=== PATIENT | male | born 1955 | race African-American/Black ===

== ENCOUNTER 2018-11-07 12:39 | Inpatient (IN) | payer OTHER, BC ==
[~2018-11-07] VITALS: Ht 172.7 cm; Wt 68.0 kg
[~2018-11-07 12:39] MED LIST: ALLO300T28 PO; ASPIRIN; ATEN50TA2 PO; ATOR40TA PO; [UNRECOGNIZED DRUG - CODE] PO; [UNRECOGNIZED DRUG - CODE] PO; [UNRECOGNIZED DRUG - REMARK]
--- NOTE | 2018-11-07 12:39 | NUR ---
Patient BIBA [facility]S, transferred to bed 7. RN evaluating patient at bedside.
--- NOTE | 2018-11-07 12:43 | NUR ---
PT BIB [facility] TO ER BED 7
[2018-11-07 12:44] VITALS: BP 96/53
--- NOTE | 2018-11-07 12:53 | NUR ---
Pt. is 63 y/o male bib by ems. Per ems, patient was in dialysis and staff noted that pt. was pale and lethargic with a blood pressure of 60/48. Staff gave him a 2L bolus of normal saline. He has a left AV shunt and a right sommer-cath. PMH: kidney disease RX: Uknown
[2018-11-07] MEDS ORDERED: NACL 0.9% 1,000 ML IV SCH (12:54)
--- NOTE | 2018-11-07 13:30 | NUR ---
DR.KURERA ROONEYED TO USE PORT A CATH----USING ASEPTIC TECHINQUE ACCESSED PORT---LABS DRAWN -----PT TOLERATED WITH MINIMAL DISCOMFORT STATED BY PT
[2018-11-07 14:26] LABS: MEAN CORPUSCULAR HEMOGLOBIN 28 pg (27-31); MEAN CORPUSCULAR HGB CONC 32 g/dL (33-37); PLATELET COUNT (AUTO) 181 K/uL (140-450); RED BLOOD CELL COUNT(AUTO) 1.67 MIL/uL (4.20-6.10); RED CELL DISTRIBUTION WIDTH 19.6 % (11.6-13.7); WHITE BLOOD COUNT (AUTO) 5.1 K/uL (4.8-10.8)
[2018-11-07 14:31] LABS: HEMATOCRIT 14.7 % (36-52); HEMOGLOBIN 4.7 g/dL (12.0-18.0)
[2018-11-07 14:35] LABS: ALBUMIN 2.1 g/dL (3.4-5.0); ANION GAP 10.7 (8-16); CARBON DIOXIDE 29.6 mmol/L (21-32); POTASSIUM 3.3 mmol/L (3.5-5.1); TOTAL BILIRUBIN 0.5 mg/dL (0.0-1.0)
[2018-11-07 14:37] LABS: CREATININE 4.9 mg/dL (0.7-1.3)
[2018-11-07 14:53] LABS: LYMPHOCYTES % (MANUAL) 8 % (20-46)
[2018-11-07 14:54] LABS: BASOPHILS % (MANUAL) 0 % (0-2); EOSINOPHILS % (MANUAL) 0 % (0-4); MONOCYTES % (MANUAL) 5 % (5-12)
--- NOTE | 2018-11-07 15:45 | NUR ---
PT'S H&H NOTED. MD AWARE OF CONDITION. DUE TO CHRONIC NATURE, PATIENT OKAY TO DISCHARGE.
--- NOTE | 2018-11-07 16:05 | NUR ---
PT. SEEN BY . WILL BE ADMITTED TO THE FLOOR.
--- NOTE | 2018-11-07 16:06 | NUR ---
Dr. Muñoz evaluating patient at bedside.
[2018-11-07] MEDS ORDERED: PANT40EC PO (16:16)
[2018-11-07] MEDS ORDERED: CINA30TA4 PO (16:16)
[2018-11-07] MEDS ORDERED: RISP1TAB27 PO (16:16)
[2018-11-07] MEDS ORDERED: SUCR500C PO ×2 (16:16→17:49)
[2018-11-07] MEDS ORDERED: SEVE800T6 PO ×2 (16:16→17:49)
[2018-11-07] MEDS ORDERED: DEXT 5% /NACL 0.9% 1,000 ML IV SCH (16:18)
[2018-11-07] MEDS ORDERED: ZOLPIDEM 5 MG TAB PO PRN (16:20)
[2018-11-07] MEDS ORDERED: MORPHINE SULFATE 2 MG/ML SYR IVP PRN (16:20)
[2018-11-07] MEDS ORDERED: ACETAMINOPHEN 325 MG TAB PO PRN (16:20)
[2018-11-07] MEDS ORDERED: DOCUSATE SODIUM 100 MG GELCAP PO PRN (16:20)
[2018-11-07] MEDS ORDERED: LORazepam 2 MG/ML VIAL IM/IVP PRN (16:20)
[2018-11-07] MEDS ORDERED: ONDANSETRON 4 MG/2 ML VIAL IM/IVP PRN (16:20)
[2018-11-07] MEDS ORDERED: HYDROcodone/APAP 5/325 MG 1 TAB TAB PO PRN (16:20)
--- NOTE | 2018-11-07 16:28 | NUR ---
DUE TO H&H VALUE, . NOTIFIED. WILL ADMIT TO 121 B.
--- NOTE | 2018-11-07 17:01 | NUR ---
Note luis in ED - 11/07/18 at 1701 by SAYDA Patient will be admitted to care of DR. GUO. Admited to TELE. Will go to room. Belongings list completed. Report to .
--- NOTE | 2018-11-07 17:02 | NUR ---
Patient will be admitted to care of DR. GUO . Admited to TELE. Will go to room 119 B. Belongings list completed. Report to JOHN LUNDY.
[2018-11-07 17:10] LABS: PROTHROMBIN TIME 12.9 secs (10.8-13.4)
--- NOTE | 2018-11-07 17:15 | NUR ---
RECEIVED PT FROM ED NURSE, PT IS AWAKE BUT APPEARS LETHARGIC. OMAR AT BEDSIDE. HE IS A&O X 4, ON ROOM AIR. SKIN INTACT. PT HAS A R CHEST PORTACATH FOR IV ACCESS. HD SHUNT NOTED IN THE L AV. 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 PT ALSO HAS HX OF PROSTATE CANCER, WHICH WAS ALSO REMOVED. PT STATES THAT HE IS ABLE TO WALK AND DRIVE, HOWEVER, WAS MADE A FALL RISK DUE TO WEAKNESS R/T ANEMIA. PNA VACCINE WAS GIVEN IN APR 2018, FLU VACCINE GIVEN IN JAN 2018. CALL LIGHT GIVEN WITHIN REACH. WILL CONTINUE TO MONITOR.
[2018-11-07 17:19] LABS: CHOL/HDL RATIO 3.1 (1-4.5); MAGNESIUM 1.7 mg/dL (1.8-2.4); PHOSPHORUS 2.9 mg/dL (2.5-4.9); THYROID STIMULATING HORMONE 1.86 uIU/mL (0.34-3.74)
[2018-11-07 17:30] VITALS: BP 112/63
--- NOTE | 2018-11-07 18:10 | NUR ---
CALLED LAB TO CHECK ON PRBC'S STATUS, MOTOR CHECKER SAYS BLOOD IS STILL BEING TYPED AND CROSS-MATCHED IN [place], AND WILL CALL WHEN READY. PT AND FAMILY NOTIFIED.
--- NOTE | 2018-11-07 18:55 | NUR ---
LATE DINNER TRAY PROVIDED FOR PT. PT IS ON RENAL DIET. AND DAUGHTER ARE AT BEDSIDE.
--- NOTE | 2018-11-07 19:10 | NUR ---
RECEIVED BEDSIDE REPORT FROM AM SHIFT RN HOLLY, FOR PATIENT'S CONTINUITY OF CARE. PATIENT IS EATING LATE DINNER WITH SPOUSE AT BEDSIDE FEEDING HIM. PATIENT IS ALERT, AWAKE, ORIENTED X 4, IS ON ROOM AIR, HAS RIGHT CHEST PORTACATH, LEFT AV SHUNT, SKIN IS INTACT, AND PATIENT IS ANURIC. EXPLAINED TO PATIENT AND FAMILY MEMBER THE NIGHT TIME ROUTINE, PATIENT AND FAMILY MEMBER VERBALIZED UNDERSTANDING.
--- NOTE | 2018-11-07 19:30 | NUR ---
PT ENDORSED TO INSOLE LIP TURNER IN STABLE CONDITION. STILL WAITING TO RECEIVE PRBC'S FROM THE LAB.
--- NOTE | 2018-11-07 19:31 | NUR ---
RECEIVED REPORT FROM PLANT GENERAL MANAGER RN JOE. WILL CONTINUE TO MONITOR.
[2018-11-07 20:00] VITALS: BP 105/65
--- NOTE | 2018-11-07 23:20 | NUR ---
BLOOD TRANSFUSION OBTAINED AND STARTED. VITALS STABLE. VERIFIED WITH CHARGE NURSE DARRYL. WILL REMAIN WITH PT AND RECHECK VITALS WITHIN 15 MIN. WILL CONTINUE TO MONITOR PT. AT BEDSIDE.
--- NOTE | 2018-11-07 23:32 | NUR ---
NASAL CANULA IN PLACE AT 2L.
[2018-11-08] VITALS: BP 109/64
--- NOTE | 2018-11-08 00:32 | NUR ---
NO REACTION TO INFUSING BLOOD. NO SOB. NO PAIN AT THIS TIME. VITALS MONITORED. WILL CONTINUE TO MONITOR.
--- NOTE | 2018-11-08 01:12 | NUR ---
PT IS RESTING IN BED. NO SIGNS OF RESP DISTRESS. NO COMPLAINTS AT THIS TIME. DENIES PAIN. BLOOD STILL INFUSING. VITALS WNL. WILL CONTINUE TO MONITOR.
--- NOTE | 2018-11-08 03:00 | NUR ---
PT IS RESTING IN BED. EASILY AROUSABLE. EVEN CHEST RISE. NO SIGNS OF DISTRESS. BLOOD STILL INFUSING. WILL CONTINUE TO MONITOR.
[2018-11-08 04:00] VITALS: BP 110/70
[2018-11-08 05:33] LABS: EOSINOPHILS # (AUTO) 0.1 K/uL (0-0.4); LYMPHOCYTES # (AUTO) 0.6 K/uL (2.0-11.5); NEUTROPHILS # (AUTO) 3.3 K/uL (1.8-7.7)
[2018-11-08 05:41] LABS: BASOPHILS % (AUTO) 0.6 % (0.0-2.0); EOSINOPHILS % (AUTO) 2.3 % (0.0-4.0); LYMPHOCYTES % (AUTO) 13.9 % (20.5-51.1); MEAN CORPUSCULAR HEMOGLOBIN 29 pg (27-31); MEAN CORPUSCULAR HGB CONC 33 g/dL (33-37); MONOCYTES # (AUTO) 0.4 K/uL (0.8-1.0); MONOCYTES % (AUTO) 9.8 % (1.7-9.3); NEUTROPHILS % (AUTO) 73.4 % (42.2-75.2); PLATELET COUNT (AUTO) 197 K/uL (140-450); RED BLOOD CELL COUNT(AUTO) 2.15 MIL/uL (4.20-6.10); RED CELL DISTRIBUTION WIDTH 18.4 % (11.6-13.7); WHITE BLOOD COUNT (AUTO) 4.5 K/uL (4.8-10.8)
--- NOTE | 2018-11-08 05:48 | NUR ---
LAB CALLED TO REPORT LAB VALUE OF HGB 6.2 HCT 19.1. TRENDING UPWARD. WILL CONTINUE TO MONITOR.
[2018-11-08 05:49] LABS: HEMATOCRIT 19.1 % (36-52); HEMOGLOBIN 6.2 g/dL (12.0-18.0)
[2018-11-08] MEDS: PANTOPRAZOLE 40 MG TABEC PO SCH (06:30)
--- NOTE | 2018-11-08 06:30 | NUR ---
PT REFUSED SCHEDULED MED. EDUCATED ON BENEFITS. VERBALIZED UNDERSTANDING. WILL CONTINUE TO MONITOR.
--- NOTE | 2018-11-08 06:35 | NUR ---
BLOOD COMPLETE. VITALS WNL. TOLERATED WELL. NO SIGNS OF DISTRESS. WILL CONTINUE TO MONITOR.
--- NOTE | 2018-11-08 07:15 | NUR ---
ENDORSED PT TO KWAME HARRIS. PT IN STABLE CONDITION.
--- NOTE | 2018-11-08 07:15 | NUR ---
RECEIVED REPORT FROM MAINFRAME ARCHITECT NURSE. PT HAS NO S/S OF RESPIRATORY DISTRESS UPON ENDORSEMENT. PT IS RESTING IN BED. WILL CONTINUE TO MONITOR
--- NOTE | 2018-11-08 07:16 | NUR ---
RECEIVED BEDSIDE REPORT FROM AVIATION SAFETY OFFICER NURSE. PATIENT IS AWAKE, ALERT AND ORIENTEDX3. NO SIGNS OF DISTRESS ON RA. SKIN IS INTACT. R CHEST PORTACATH, CLEAN, DRY AND INTACT. L ARM SHUNT, SIGNS POSTED, RESTRICTED WRISTBAND IN PLACE. PATIENT IS AMBULATORY W ASSIST, FALL RISK PROTOCOL IN PLACE. TELE MONITOR IN PLACE. PATIENT IS CONTINENT. BED IN LOW POSITION. CALL LIGHT WITHIN REACH. WILL CONTINUE TO MONITOR THE PATIENT.
[2018-11-08] MEDS ORDERED: SEVELAMER CARBONATE 800 MG TAB PO SCH ×2 (07:30→08:00)
[2018-11-08 07:45] VITALS: BP 129/70
[2018-11-08] MEDS ORDERED: NON-FORMULARY ITEM (Sucroferric Oxyhydroxide (Velphoro) 500 MG) PO SCH ×2 (08:00→09:00)
--- NOTE | 2018-11-08 08:43 | NUR ---
PATIENT HAS BEEN SCREENED AND CATEGORIZED MODERATE NUTRITION RISK. PATIENT WILL BE SEEN WITHIN 3-5 DAYS OF ADMISSION. 11/10/18[address]
[2018-11-08] MEDS: risperiDONE 1 MG TAB PO SCH (09:00)
[2018-11-08 09:06] LABS: T4 (THYROXINE) 6.1 ug/dL (4.5-12.0)
[2018-11-08] MEDS: ALLOPURINOL 100 MG TAB PO SCH (09:08)
[2018-11-08] MEDS: SEVELAMER CARBONATE 800 MG TAB PO SCH ×3 (09:08→17:17)
[2018-11-08] MEDS: CINACALCET 30 MG TAB PO SCH (09:08)
--- NOTE | 2018-11-08 09:13 | NUR ---
PATIENT REFUSED MORNING MEDICATION OF RISPERIDONE. STATED THAT HE TAKES THIS MEDICATION AT NIGHT BEFORE BED TO HELP HIM SLEEP.
[2018-11-08 09:47] LABS: BASOPHILS % (AUTO) 0.6 % (0.0-2.0); EOSINOPHILS # (AUTO) 0.1 K/uL (0-0.4); EOSINOPHILS % (AUTO) 1.9 % (0.0-4.0); HEMATOCRIT 21.7 % (36-52); HEMOGLOBIN 7.1 g/dL (12.0-18.0); LYMPHOCYTES # (AUTO) 0.5 K/uL (2.0-11.5); LYMPHOCYTES % (AUTO) 10.2 % (20.5-51.1); MEAN CORPUSCULAR HEMOGLOBIN 29 pg (27-31); MEAN CORPUSCULAR HGB CONC 33 g/dL (33-37); MEAN CORPUSCULAR VOLUME 87.4 fL (80-94); MONOCYTES # (AUTO) 0.4 K/uL (0.8-1.0); MONOCYTES % (AUTO) 8.4 % (1.7-9.3); NEUTROPHILS # (AUTO) 3.6 K/uL (1.8-7.7); NEUTROPHILS % (AUTO) 78.9 % (42.2-75.2); PLATELET COUNT (AUTO) 198 K/uL (140-450); RED BLOOD CELL COUNT(AUTO) 2.48 MIL/uL (4.20-6.10); RED CELL DISTRIBUTION WIDTH 18.8 % (11.6-13.7); WHITE BLOOD COUNT (AUTO) 4.6 K/uL (4.8-10.8)
[2018-11-08 09:59] LABS: ANION GAP 13.3 (8-16); CARBON DIOXIDE 26.8 mmol/L (21-32); POTASSIUM 4.1 mmol/L (3.5-5.1)
[2018-11-08 10:05] LABS: CREATININE 6.9 mg/dL (0.7-1.3)
--- NOTE | 2018-11-08 10:05 | NUR ---
CRITICAL VALUE OF 6.[address] DOMINGUEZ WAS MADE AWARE. NO CHANGE IN ORDERS.
[2018-11-08 10:06] LABS: MAGNESIUM 1.8 mg/dL (1.8-2.4); PHOSPHORUS 4.2 mg/dL (2.5-4.9)
[2018-11-08] MEDS: ACETAMINOPHEN 325 MG TAB PO SCH ×3 (11:36→20:23)
[2018-11-08 12:00] VITALS: BP 120/69
--- NOTE | 2018-11-08 12:00 | NUR ---
BLOOD TRANSFUSION STARTED. PRE TRANSFUSION MEDS WERE GIVEN. NO SIGNS OF REACTION AT THIS TIME. VITALS ARE STABLE. WILL CONTINUE TO MONITOR THE PATIENT.
--- NOTE | 2018-11-08 12:15 | NUR ---
NO REACTION. VITALS ARE STABLE. DIALYSIS NURSE AT BEDSIDE TO START DIALYSIS. DIALYSIS NURSE WILL RUN THE REST OF THE BLOOD WHEN DIALYSIS STARTS
--- NOTE | 2018-11-08 13:30 | NUR ---
BLOOD TRANSFUSION ENDED. NO REACTION NOTED. PATIENT TOLERATED WELL. WILL CONTINUE TO MONITOR
--- NOTE | 2018-11-08 15:30 | NUR ---
DIALYSIS COMPLETED ON PATIENT. CRITICAL SYSTEMS TECHNICIAN TOOK OUT 2.6L. NOTIFIED OF VITAL SIGNS, ALL WNL. BP STABLE UPON END OF DIALYSIS, AND TEMPERATURE WNL.
[2018-11-08 16:00] VITALS: BP 114/66
--- NOTE | 2018-11-08 17:00 | NUR ---
PATIENT IN NO DISTRESS. FAMILY AT BEDSIDE. WILL CONTINUE TO MONITOR
[2018-11-08 17:57] LABS: BASOPHILS % (AUTO) 0.4 % (0.0-2.0); EOSINOPHILS # (AUTO) 0.1 K/uL (0-0.4); EOSINOPHILS % (AUTO) 2.1 % (0.0-4.0); HEMATOCRIT 23.4 % (36-52); HEMOGLOBIN 7.7 g/dL (12.0-18.0); LYMPHOCYTES # (AUTO) 0.5 K/uL (2.0-11.5); LYMPHOCYTES % (AUTO) 10.9 % (20.5-51.1); MEAN CORPUSCULAR HEMOGLOBIN 28 pg (27-31); MEAN CORPUSCULAR HGB CONC 33 g/dL (33-37); MEAN CORPUSCULAR VOLUME 86.2 fL (80-94); MONOCYTES # (AUTO) 0.4 K/uL (0.8-1.0); MONOCYTES % (AUTO) 9.8 % (1.7-9.3); NEUTROPHILS # (AUTO) 3.4 K/uL (1.8-7.7); NEUTROPHILS % (AUTO) 76.8 % (42.2-75.2); PLATELET COUNT (AUTO) 186 K/uL (140-450); RED BLOOD CELL COUNT(AUTO) 2.72 MIL/uL (4.20-6.10); RED CELL DISTRIBUTION WIDTH 19.1 % (11.6-13.7); WHITE BLOOD COUNT (AUTO) 4.5 K/uL (4.8-10.8)
--- NOTE | 2018-11-08 19:10 | NUR ---
ENDORSED PATIENT TO C ENGINEER NURSE. PATIENT IN STABLE CONDITION UPON CHANGE OF SHIFT, NO S/S OF RESPIRATORY DISTRESS.
--- NOTE | 2018-11-08 19:11 | NUR ---
RECEIVED BEDSIDE REPORT FROM AM SHIFT NURSE. PATIENT IS AWAKE, ALERT AND ORIENTEDX3. NO SIGNS OF DISTRESS ON RA. SKIN IS INTACT. WITH R CHEST PORTACATH, CLEAN, DRY AND INTACT. WITH L ARM SHUNT, SIGNS POSTED, RESTRICTED WRISTBAND IN PLACE. PATIENT IS AMBULATORY W ASSIST, FALL RISK PROTOCOL IN PLACE. TELE MONITOR IN PLACE. PATIENT IS CONTINENT. BED IN LOW POSITION. CALL LIGHT WITHIN REACH. WILL CONTINUE TO MONITOR THE PATIENT.
[2018-11-08 20:00] VITALS: BP 123/81
--- NOTE | 2018-11-08 20:15 | NUR ---
INFORMED DR. BRISCOE THAT PT HAD A SHORT RUN V TACH 1950 86 BPM, AND AT 2010 TOOK A READING OF 84BPM ACCELERATED SR. READ TO THE DR. ROGERS READING OF THE PREVIOUS ECG. HE ORDERED FOR ANOTHER ECG AT THIS TIME
--- NOTE | 2018-11-08 20:16 | NUR ---
ASKED BRAULIO BRISCOE IF BLOOD CAN BE TRANSFUSED WITH THE ECG READING. HE SAID OK TO TRANSFUSE THE BLOOD
--- NOTE | 2018-11-08 20:31 | NUR ---
TOOK THE BLOOD FROM THE BLOOD BANK VERIFIED BLOOD W/ BLOOD BANK
--- NOTE | 2018-11-08 20:35 | NUR ---
PRE-TRANSFUSION VS; 96.7; 84; 18 ;121/70; 0/10 PAIN; 99 O2 SAT
--- NOTE | 2018-11-08 20:52 | NUR ---
VERIFIED THE BLOOD WITH 2 RN'S AT PT. BEDSIDE. 2ND TELEVISION REPAIRER SIGNED
[2018-11-08] MEDS ORDERED: ATORVASTATIN 20 MG TAB PO SCH (21:00)
--- NOTE | 2018-11-08 21:07 | NUR ---
15 MINS AFTER START TOOK VS: 97.4; 79;18'111/73 0/10 PAIN 99%
--- NOTE | 2018-11-08 23:22 | NUR ---
REMINDED SEO CONSULTANT/ RT TO GET AN EKG ORDERED BY DR. BRISCOE AT 2020.
[2018-11-09] VITALS: BP 123/73
--- NOTE | 2018-11-09 | NUR ---
ENDED BLOOD TRANSFUSION. WILL TAKE POST TRANSFUSION VITAL SIGNS
[2018-11-09 00:48] LABS: BASOPHILS % (AUTO) 0.8 % (0.0-2.0); EOSINOPHILS # (AUTO) 0.1 K/uL (0-0.4); EOSINOPHILS % (AUTO) 2.7 % (0.0-4.0); HEMATOCRIT 25.6 % (36-52); HEMOGLOBIN 8.6 g/dL (12.0-18.0); LYMPHOCYTES # (AUTO) 0.5 K/uL (2.0-11.5); LYMPHOCYTES % (AUTO) 10.9 % (20.5-51.1); MEAN CORPUSCULAR HEMOGLOBIN 29 pg (27-31); MEAN CORPUSCULAR HGB CONC 34 g/dL (33-37); MEAN CORPUSCULAR VOLUME 86.5 fL (80-94); MONOCYTES # (AUTO) 0.5 K/uL (0.8-1.0); MONOCYTES % (AUTO) 10.4 % (1.7-9.3); NEUTROPHILS # (AUTO) 3.6 K/uL (1.8-7.7); NEUTROPHILS % (AUTO) 75.2 % (42.2-75.2); PLATELET COUNT (AUTO) 178 K/uL (140-450); RED BLOOD CELL COUNT(AUTO) 2.96 MIL/uL (4.20-6.10); WHITE BLOOD COUNT (AUTO) 4.8 K/uL (4.8-10.8)
--- NOTE | 2018-11-09 04:00 | NUR ---
VITAL SIGNS TAKEN. PT IN STABLE CONDITION, WILL CONTINUE TO MONITOR
[2018-11-09 06:00] VITALS: BP 120/68
[2018-11-09 06:10] LABS: BASOPHILS % (AUTO) 0.7 % (0.0-2.0); EOSINOPHILS # (AUTO) 0.1 K/uL (0-0.4); EOSINOPHILS % (AUTO) 2.7 % (0.0-4.0); HEMATOCRIT 26.3 % (36-52); HEMOGLOBIN 8.8 g/dL (12.0-18.0); LYMPHOCYTES # (AUTO) 0.7 K/uL (2.0-11.5); LYMPHOCYTES % (AUTO) 15.5 % (20.5-51.1); MEAN CORPUSCULAR HEMOGLOBIN 29 pg (27-31); MEAN CORPUSCULAR HGB CONC 34 g/dL (33-37); MEAN CORPUSCULAR VOLUME 86.2 fL (80-94); MONOCYTES # (AUTO) 0.4 K/uL (0.8-1.0); MONOCYTES % (AUTO) 9.1 % (1.7-9.3); NEUTROPHILS # (AUTO) 3.3 K/uL (1.8-7.7); PLATELET COUNT (AUTO) 182 K/uL (140-450); RED BLOOD CELL COUNT(AUTO) 3.05 MIL/uL (4.20-6.10); RED CELL DISTRIBUTION WIDTH 18.5 % (11.6-13.7); WHITE BLOOD COUNT (AUTO) 4.6 K/uL (4.8-10.8)
--- NOTE | 2018-11-09 06:18 | NUR ---
LEFT PT ON BED HIGH BACK REST, AWAKE, ORIENTED X 4 IN STABLE CONDITION. WILL HAVE HEMODIALYSIS TODAY.
[2018-11-09] MEDS: PANTOPRAZOLE 40 MG TABEC PO SCH (06:30)
--- NOTE | 2018-11-09 07:10 | NUR ---
RECEIVED REPORT FROM EMBEDDED SYSTEMS ENGINEER NURSE. PATIENT STABLE UPON CHANGE OF SHIFT. NO S/S OF RESPIRATORY DISTRESS. PATIENT IS RESTING QUIETLY IN BED. SCHEDULED TO RECEIVE DIALYSIS TODAY AT 1000. NO FURTHER COMPLAINTS FROM PATIENT. WILL CONTINUE TO MONITOR.
[2018-11-09 07:17] LABS: MAGNESIUM 1.8 mg/dL (1.8-2.4); PHOSPHORUS 4.1 mg/dL (2.5-4.9)
[2018-11-09 07:26] LABS: ANION GAP 15.5 (8-16); CARBON DIOXIDE 25.1 mmol/L (21-32); POTASSIUM 4.6 mmol/L (3.5-5.1)
[2018-11-09 08:00] VITALS: BP 111/73
[2018-11-09] MEDS: SEVELAMER CARBONATE 800 MG TAB PO SCH (08:00)
[2018-11-09] MEDS: CINACALCET 30 MG TAB PO SCH (08:00)
[2018-11-09] MEDS: ALLOPURINOL 100 MG TAB PO SCH (08:13)
[2018-11-09] MEDS: risperiDONE 1 MG TAB PO SCH (08:13)
--- NOTE | 2018-11-09 08:13 | NUR ---
DID NOT ADMINISTER MORNING MEDICATION D/T PATIENT SCHEDULED TO RECEIVE DIALYSIS AT 1000.
--- NOTE | 2018-11-09 08:43 | NUR ---
SPOKE TO DR JUDD AND MADE HIM AWARE REGARDING CRITICAL LAB VALUE OF CREA 8.0. NO CHANGE IN ORDERS PER TELEPHONE CALL. SCHEDULED FOR DIALYSIS AT 1000.
[2018-11-09] MEDS ORDERED: ASPI-1718 PO (08:45)
--- NOTE | 2018-11-09 10:00 | NUR ---
PATIENT ANGRY THAT THE DIALYSIS TIME CHANGED TO 1 OCLOCK D/T AN EMERGENCY WITH THE HD NURSE. PATIENT WANTS TO TALK TO DR DOMINGUEZ AND HE WANTS TO GO HOME.
--- NOTE | 2018-11-09 10:30 | NUR ---
DR DOMINGUEZ SCHEDULED A HD APPOINTMENT FOR PATIENT TOMORROW SO THAT HE CAN GO HOME
--- NOTE | 2018-11-09 11:30 | NUR ---
EDUCATED PATIENT ON DISEASE PROCESS, ABNORMAL S/S, MEDICATION, AND WHEN TO GO TO ER. ASPIRIN ORDER IS OTC AND PATIENT WAS EDUCATED ON IT. PATIENT VERBALIZED UNDERSTANDING. REMOVED PORTACATH, TIP INTACT. REMOVED TELE MONITOR AND ID BANDS. PNA AND FLU VACCINE UP TO DATE. EDUCATED ON DIALYSIS APPOINTMENT TOMORROW. PATIENT WAS DISCHARGED TO HOME ACCOMPANIED BY . PATIENT AMBULATED STEADILY TO THE HOSPITAL ENTRANCE. NO RESP DISTRESS OR SOB UPON DISCHARGE. VITAL SIGNS STABLE.
== END 2018-11-09 11:30 | disposition home or self-care (01) | DRG 280 ==
LOC: MED 12:39 → MTU 16:18
PROVIDERS: ADMIT General Practice; ATTEND General Practice
PROC: 30233N1 Transfusion of Nonautologous Red Blood Cells into Peripheral Vein, Percutaneous Approach (ICD-10-PCS; 2018-11-07)
PROC: 02HV33Z Insertion of Infusion Device into Superior Vena Cava, Percutaneous Approach (ICD-10-PCS; 2018-11-07)
PROC: 5A1D70Z Performance of Urinary Filtration, Intermittent, Less than 6 Hours Per Day (ICD-10-PCS; principal; 2018-11-08)
DX: I13.2 Hypertensive heart and chronic kidney disease with heart failure and with stage 5 chronic kidney disease, or end stage renal disease (principal); N17.0 Acute kidney failure with tubular necrosis; I21.A1 Myocardial infarction type 2; E43 Unspecified severe protein-calorie malnutrition; I50.43 Acute on chronic combined systolic (congestive) and diastolic (congestive) heart failure; N18.6 End stage renal disease; J90 Pleural effusion, not elsewhere classified; D64.9 Anemia, unspecified; D63.8 Anemia in other chronic diseases classified elsewhere; E78.5 Hyperlipidemia, unspecified; G40.909 Epilepsy, unspecified, not intractable, without status epilepticus; I48.91 Unspecified atrial fibrillation; I95.3 Hypotension of hemodialysis; K21.9 Gastro-esophageal reflux disease without esophagitis; F32.9 Major depressive disorder, single episode, unspecified; M10.9 Gout, unspecified; G47.00 Insomnia, unspecified; E87.6 Hypokalemia; I25.10 Atherosclerotic heart disease of native coronary artery without angina pectoris; E83.42 Hypomagnesemia; I08.1 Rheumatic disorders of both mitral and tricuspid valves; Z99.2 Dependence on renal dialysis; Z68.22 Body mass index [BMI] 22.0-22.9, adult; Z85.46 Personal history of malignant neoplasm of prostate; Z90.5 Acquired absence of kidney; Z90.79 Acquired absence of other genital organ(s); Z95.1 Presence of aortocoronary bypass graft; Z80.42 Family history of malignant neoplasm of prostate; Z80.8 Family history of malignant neoplasm of other organs or systems
CPT/HCPCS: 36415; 71045; 76604; 80048; 80053; 82150; 83036; 83605; 83690; 83735; 83880; 84100; 84134; 84436; 84443; 84484; 85025; 85610; 85730; 86886; 86900; 86901; 86920; 87040; 87081; 93005; 96360; 99285; J7030; P9016; Q0092; Q0163